=== PATIENT | female | born 1995 | race Hispanic/Latino ===

== ENCOUNTER 2016-03-07 14:55 | Emergency (ER) | payer OTHER ==
[~2016-03-07] VITALS: Ht 167.6 cm; Wt 77.3 kg
[~2016-03-07 14:55] MED LIST: CIPR-231 PO; OMEP20TA24 PO; SUCR1TAB30 PO
[2016-03-07 15:00] VITALS: BP 126/60; PULSE 70; RESP 16; O2SAT 99
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
== END 2016-03-07 16:50 | disposition home or self-care (01) ==
LOC: SED 14:55
DX: T24.001A Burn of unspecified degree of unspecified site of right lower limb, except ankle and foot, initial encounter (principal); T31.0 Burns involving less than 10% of body surface; X16.XXXA Contact with hot heating appliances, radiators and pipes, initial encounter; Y92.9 Unspecified place or not applicable; Y93.84 Activity, sleeping; Y99.8 Other external cause status